=== PATIENT | male | born 1945 | race Caucasian/White ===

== ENCOUNTER 2022-05-07 14:32 | Emergency (ER) | payer MEDICARE ==
[2022-05-07 14:47] VITALS: TEMP 98.2
[2022-05-07 18:00] LABS: Appearance,Urine Cloudy (Clear); Bacteria,Urine Rare /hpf; Bilirubin,Urine Negative (Negative); Blood,Urine Large (Negative); Color,Urine Yellow; Glucose,Urine (UA) Negative (Negative); Ketones,Urine Negative (Negative); Leukocyte Esterase,Urine Trace (Negative); Mucus,Urine Few /hpf; Nitrite,Urine Negative (Negative); PH, Urine 5.5 (5.0-8.0); Protein,Urine 2+ (Negative); RBC,Urine >182 /hpf (0-5); Specific Gravity,Urine 1.023 (1.001-1.035); Urobilinogen,Urine <2.0 mg/dL (<2.0); WBC,Urine 49 /hpf (0-5)
--- NOTE | 2022-05-07 18:41 | ED ---
General Adult HPI - General Chief complaint: Abdominal Pain Stated complaint: abd pain, urogenital Time Seen by Provider: 05/07/22 18:20 Source: patient, family, RN notes reviewed, old records reviewed Mode of arrival: ambulatory Limitations: no limitations - History of Present Illness Initial comments: 76-year-old well-appearing male presents to the emergency room with complaints of urinary retention. States that he's had problems with his flow for over a week. Seen his his primary care doctor who recommended he follow-up with urology. He does have an appointment on Sunday with the [facility] urologist. Patient states that he has been having difficulty urinating today with only getting dribbles out. He has a history of GERD and hypertension takes lisinopril, atorvastatin and hydrochlorothiazide. Denies any fevers, no nausea vomiting or diarrhea. -: week(s) (1) Location: abdomen (lower suprapubic) Radiation: non-radiation Severity scale (1-10): 3 Quality: constant, other (pressure) Consistency: intermittent Associated Symptoms: other (urinary retention/dribbling) - Related Data Home Medications Medication Instructions Recorded Confirmed Lisinopril [Prinivil] 7.5 mg PO DAILY 03/01/14 03/01/14 hydroCHLOROthiazide [Hydrodiuril] 03/01/14 03/01/14 Previous Rx's Medication Instructions Recorded Cephalexin [Keflex] 500 mg PO Q6HR 10 Days #40 cap 05/07/22 Allergies Allergy/AdvReac Type Severity Reaction Status Date / Time No Known Allergies Allergy Verified 05/07/22 14:47 Review of Systems ROS Statement: Those systems with pertinent positive or pertinent negative responses have been documented in the HPI. ROS Other: All systems not noted in ROS Statement are negative. Past Medical History Past Medical History: GERD/Reflux, Hypertension History of Any Multi-Drug Resistant Organisms: None Reported Past Surgical History: Tonsillectomy Past Psychological History: No Psychological Hx Reported Smoking Status: Never smoker Past Alcohol Use History: Occasional Past Drug Use History: None Reported General Exam Limitations: no limitations General appearance: alert, in no apparent distress Head exam: Present: atraumatic Eye exam: Absent: scleral icterus, conjunctival injection, periorbital swelling Respiratory exam: Present: normal lung sounds bilaterally. Absent: respiratory distress, wheezes, rales, rhonchi, stridor, chest wall tenderness, accessory muscle use Cardiovascular Exam: Present: regular rate GI/Abdominal exam: Present: soft, tenderness (Suprapubic). Absent: distended, guarding, rebound, rigid exam: Present: vertical testicular lie, circumcision. Absent: urethral discharge, scrotal swelling Extremities exam: Present: normal capillary refill. Absent: tenderness, pedal edema Neurological exam: Present: alert, oriented X3 Psychiatric exam: Present: normal affect, normal mood Skin exam: Present: warm, dry, normal color. Absent: cyanosis, diaphoretic, petechiae, pallor Course Vital Signs 05/07/22 05/07/22 05/07/22 14:44 20:29 20:33 Temperature 98.2 F Pulse Rate 85 73 Respiratory 20 18 Rate Blood Pressure 151/97 133/87 O2 Sat by Pulse 98 98 95 Oximetry Medical Decision Making - Medical Decision Making Patient presents with urinary retention. Denies any fevers, no nausea vomiting or diarrhea. Bladder scan shows 380 mL. Bartlett catheter was placed with relief. No evidence of hematuria. Labs show minimal leukocytosis of 13.6. Electrolytes unremarkable. Urinalysis shows large amount of blood with leukocyte esterase and bacteria. Patient was given a gram of Rocephin IV. Patient will be treated with Keflex. His urology appointment is this Sunday. Patient are agreeable to this plan. All questions were answered Case discussed with Dr. Knott - Lab Data Result diagrams: 05/07/22 18:55 05/07/22 18:55 Lab Results 05/07/22 05/07/22 05/07/22 Range/Units 14:49 18:55 18:55 WBC 13.6 H (3.8-10.6) k/uL RBC 4.84 (4.30-5.90) m/uL Hgb 14.7 (13.0-17.5) gm/dL Hct 44.2 (39.0-53.0) % MCV 91.5 (80.0-100.0) fL MCH 30.5 (25.0-35.0) pg MCHC 33.3 (31.0-37.0) g/dL RDW 13.0 (11.5-15.5) % Plt Count 263 (150-450) k/uL MPV 8.0 Neutrophils % 90 % Lymphocytes % 5 % Monocytes % 3 % Eosinophils % 0 % Basophils % 0 % Neutrophils # 12.2 H (1.3-7.7) k/uL Lymphocytes # 0.7 L (1.0-4.8) k/uL Monocytes # 0.4 (0-1.0) k/uL Eosinophils # 0.0 (0-0.7) k/uL Basophils # 0.0 (0-0.2) k/uL Sodium 140 (137-145) mmol/L Potassium 3.6 (3.5-5.1) mmol/L Chloride 105 (98-107) mmol/L Carbon Dioxide 28 (22-30) mmol/L Anion Gap 7 mmol/L BUN 31 H (9-20) mg/dL Creatinine 1.02 (0.66-1.25) mg/dL Est GFR (CKD-EPI)AfAm 83 (>60 ml/min/1.73 sqM) Est GFR (CKD-EPI)NonAf 72 (>60 ml/min/1.73 sqM) Glucose 124 H (74-99) mg/dL Calcium 9.6 (8.4-10.2) mg/dL Urine Color Yellow Urine Appearance Cloudy (Clear) Urine pH 5.5 (5.0-8.0) Ur Specific [place] 1.023 (1.001-1.035) Urine Protein 2+ H (Negative) Urine Glucose (UA) Negative (Negative) Urine Ketones Negative (Negative) Urine Blood Large H (Negative) Urine Nitrite Negative (Negative) Urine Bilirubin Negative (Negative) Urine Urobilinogen <2.0 (<2.0) mg/dL Ur Leukocyte Esterase Trace H (Negative) Urine RBC >182 H (0-5) /hpf Urine WBC 49 H (0-5) /hpf Urine Bacteria Rare H (None) /hpf Urine Mucus Few H (None) /hpf Disposition Clinical Impression: Urinary retention, Urinary tract infection Disposition: HOME SELF-CARE Condition: Good Instructions (If sedation given, give patient instructions): Urinary Retention in Men (ED), Urinary Tract Infection in Men (ED) Additional Instructions: Increase your fluid intake. Take antibiotics as prescribed. Follow-up with your urologist as scheduled this Sunday. Return to the emergency room with any new or concerning symptoms including increased pain, no flow into the urinary catheter bag, fevers or back pain. Prescriptions: Cephalexin [Keflex] 500 mg PO Q6HR 10 Days #40 cap Is patient prescribed a controlled substance at d/c from ED?: No Referrals: Nonstaff,Physician [REFERRING] - 1-2 days Time of Disposition: 19:49
[2022-05-07 19:14] LABS: Basophils % (A) 0 %; Eosinophils % (A) 0 %; HCT 44.2 % (39.0-53.0); HGB 14.7 gm/dL (13.0-17.5); Lymphocytes # (A) 0.7 k/uL (1.0-4.8); Lymphocytes % (A) 5 %; MCH 30.5 pg (25.0-35.0); MCHC 33.3 g/dL (31.0-37.0); MCV 91.5 fL (80.0-100.0); Monocytes # (A) 0.4 k/uL (0-1.0); Monocytes % (A) 3 %; Neutrophils # (A) 12.2 k/uL (1.3-7.7); Neutrophils % (A) 90 %; Platelet Count 263 k/uL (150-450); RBC 4.84 m/uL (4.30-5.90); WBC 13.6 k/uL (3.8-10.6)
[2022-05-07 19:16] LABS: Calcium 9.6 mg/dL (8.4-10.2); Potassium 3.6 mmol/L (3.5-5.1)
[2022-05-07] MEDS ORDERED: cefTRIAXone IN SWFI 1,000 MG/10 ML SYRINGE IVP STA (19:37)
[2022-05-07 20:30] VITALS: BP 133/87; RESP 18
[2022-05-07 20:33] VITALS: PULSE 73
== END 2022-05-07 20:41 | disposition home or self-care (01) ==
LOC: EC 14:32
DX: N39.0 Urinary tract infection, site not specified (principal); I10 Essential (primary) hypertension
CPT/HCPCS: 99284; 96374; 36415; 80048; 85025; 81001; 87086; 51720; J0696; 51702